=== PATIENT | female | born 1980 | race Caucasian/White ===

== ENCOUNTER 2020-10-01 17:36 | Emergency (ER) | payer SELFPAY ==
[~2020-10-01] VITALS: Ht 157.5 cm; Wt 82.0 kg
[2020-10-01] MEDS ORDERED: SODIUM CHLORIDE 0.9% 1,000 ML IV ONE (18:00)
[2020-10-01] MEDS ORDERED: LORAZEPAM 0.5MG TABLET PO ONE (18:00)
[2020-10-01 18:09] LABS: EOSINOPHILS % 5.5 % (0.0-5.0); HEMATOCRIT. 40.7 % (36.0-48.0); HEMOGLOBIN. 13.2 g/dL (12.0-16.0); MEAN CORPUSCULAR HEMOGLOBIN 24.8 pg (28.0-32.0); MEAN CORPUSCULAR VOLUME 76.4 fL (81.0-99.0); MEAN PLATELET VOLUME 8.1 fl (7.4-10.4); MONOCYTES % 4.6 % (2.0-8.0); NEUTROPHILS % 64.9 % (40.0-76.0); PLATELET 420 x1000/uL (130-400); RED BLOOD CELL COUNT 5.33 mill/uL (4.2-5.4); RED CELL DISTRIBUTION WIDTH 16.8 % (11.6-14.6)
[2020-10-01 18:17] LABS: CHLORIDE 109 mEq/L (98-107)
[2020-10-01 18:21] LABS: ETHANOL BLOOD < 10 mg/dL
[2020-10-01 18:28] LABS: HCG SCREEN NEGATIVE
[2020-10-01 18:52] LABS: CLARITY URINE CLEAR (CLEAR); COLOR URINE YELLOW (YELLOW); KETONES URINE NEGATIVE (NEGATIVE); LEUKOCYTE ESTERASE URINE NEGATIVE (NEGATIVE); NITRITE URINE NEGATIVE (NEGATIVE); OCCULT BLOOD URINE 2+ (NEGATIVE); PH URINE 5.5 (4.5-8.0); PROTEIN URINE 2+ (NEGATIVE); SPECIFIC GRAVITY URINE 1.021 (1.005-1.030)
[2020-10-01 19:08] LABS: BG BASE EXCESS -1.8 mmol/L (-2.0-2.0); BG CARBOXYHEMOGLOBIN 0.1 % (0.5-1.5); BG DEOXYHEMOGLOBIN 4.6 % (0.0-5.0); BG FRACTION INSPIRED OXYGEN 21; BG HCO3 ACT 20.8 mmol/L (22.0-26.0); BG OXYGEN SATURATION 95.4 % (92.0-98.5); BG OXYHEMOGLOBIN 95.3 % (94.0-97.0); BG PCO2 29.2 mmHg (35.0-45.0); BG PH 7.471 (7.350-7.450); BG SAMPLE SITE RIGHT RADIAL; BG TOTAL HEMOGLOBIN 12.7 g/dL (12.0-18.0); BG VENT MODE ROOM AIR
[2020-10-01 19:09] LABS: *BARBITURATES SCREEN URINE NEGATIVE (NEGATIVE); *BENZODIAZEPINES SCREEN URINE NEGATIVE (NEGATIVE); CANNABINOID URINE SCREEN NEGATIVE (NEGATIVE)
[2020-10-01 19:10] LABS: *COCAINE SCREEN URINE NEGATIVE (NEGATIVE); METHADONE URINE SCREEN NEGATIVE (NEGATIVE); OPIATES URINE SCREEN NEGATIVE (NEGATIVE); PHENCYCLIDINE URINE SCREEN NEGATIVE (NEGATIVE)
[2020-10-01 19:17] LABS: *AMPHETAMINES SCREEN URINE PRESUMTIVE POSITIVE (NEGATIVE)
[2020-10-01] MEDS ORDERED: IOHEXOL-350 100 ML BOTTLE ONE (21:32)
[2020-10-01 23:50] VITALS: BP 178/89
== END 2020-10-02 00:10 | disposition home or self-care (01) ==
LOC: ER 17:36
DX: T43.621A Poisoning by amphetamines, accidental (unintentional), initial encounter (principal); R06.02 Shortness of breath; R09.02 Hypoxemia; R00.0 Tachycardia, unspecified; R05 Cough; F15.188 Other stimulant abuse with other stimulant-induced disorder; F14.10 Cocaine abuse, uncomplicated; R03.0 Elevated blood-pressure reading, without diagnosis of hypertension; R79.1 Abnormal coagulation profile; Y92.89 Other specified places as the place of occurrence of the external cause
CPT/HCPCS: 36415; 36600; 71045; 71275; 80053; 80305; 80320; 81003; 82375; 82805; 84703; 85025; 85379; 93005; 96360; 99285; J7030; Q9967; G0480